=== PATIENT | male | born 1950 | race African-American/Black ===

== ENCOUNTER 2022-11-06 12:06 | Outpatient (CLI) | payer MEDICARE, BC ==
[2022-11-06] MEDS ORDERED: Iopamidol 370 76% 100 ML VIAL ONE (15:11)
== END 2022-11-06 12:07 | disposition home or self-care (01) ==
LOC: CSHCT 12:06
PROVIDERS: ATTEND Thoracic Surgery (Cardiothoracic Vascular Surgery)
DX: I71.40 Abdominal aortic aneurysm, without rupture, unspecified (principal); I71.43 Infrarenal abdominal aortic aneurysm, without rupture; M79.89 Other specified soft tissue disorders
CPT/HCPCS: 74174; 82565